=== PATIENT | female | born 1985 | race American Indian/Alaskan Native ===

== ENCOUNTER 2022-04-16 20:11 | Emergency (ER) | payer SELFPAY ==
[2022-04-16 23:26] VITALS: BP 121/74
[2022-04-17 08:37] LABS: Hematocrit 29.5 % (30.3-42.9); Hemoglobin 9.6 gm/dl (10.1-14.3); Mean Corpuscular HGB Conc 33 % (30-34); Platelet Count 242 K/mm3 (140-440); Red Cell Distribution Width 18.8 % (13.2-15.2)
[2022-04-17 08:48] LABS: Mean Corpuscular Volume 66 fl (79-97)
[2022-04-17 09:01] LABS: Blood Urea Nitrogen 6 mg/dL (7-17); Calcium 9.5 mg/dL (8.4-10.2); Hemolysis Index 4
[2022-04-17 09:02] LABS: BUN/Creatinine Ratio 9
[2022-04-17] MEDS ORDERED: predniSONE 20 MG TAB PO ONE (09:16)
[2022-04-17] MEDS ORDERED: BUTALB/ACETAMINOPHEN/CAFFEINE TAB PO ONE (09:16)
[2022-04-17] MEDS ORDERED: POTASSIUM CHLORIDE ER 20 MEQ TAB PO ONE (09:16)
[2022-04-17 10:25] LABS: Bilirubin,Urine Negative (Negative); Blood,Urine Large (Negative); Color,Urine Straw (Yellow); Urobilinogen,Urine < 2.0 mg/dL (<2.0)
[2022-04-17 10:36] LABS: Mucus,Urine 3+ /HPF
--- NOTE | 2022-04-17 10:49 | Emergency Department Report ---
ED General Adult HPI - General Chief complaint: Sore Throat Stated complaint: ANEMIA Time Seen by Provider: 04/17/22 07:23 Source: patient Mode of arrival: Ambulatory Limitations: No Limitations - History of Present Illness Initial comments: 37-year-old black female with a past medical history of anemia presents to the emergency department for evaluation of 2-day history of fever, headache, sore throat, and generalized weakness and malaise. She states that she feels like she felt when she needed a blood transfusion. She states that she just finished her menstrual cycle but it was not any heavier than usual. She denies chest pain, shortness of breath, nausea, vomiting, and diaphoresis. -: Gradual, days(s) (2) Location: head Radiation: non-radiation Severity scale (0 -10): 10 Quality: aching Consistency: constant Associated Symptoms: fever/chills, headaches, malaise, weakness. denies: confusion, chest pain, cough, diaphoresis, loss of appetite, nausea/vomiting, ra sh, seizure, shortness of breath, syncope Treatments Prior to Arrival: none - Related Data Previous Rx's Medication Instructions Recorded Last Taken Type traMADoL [Ultram 50 MG tab] 50 mg PO Q6HR PRN #16 tablet 08/07/14 Unknown Rx Allergies Allergy/AdvReac Type Severity Reaction Status Date / Time No Known Allergies Allergy Unverified 08/07/14 16:19 ED Review of Systems ROS: Stated complaint: ANEMIA Other details as noted in HPI Comment: All other systems reviewed and negative Constitutional: fever, weakness. denies: chills Eyes: denies: vision change ENT: denies: ear pain, dental pain, congestion Respiratory: denies: cough, shortness of breath, SOB with exertion, SOB at rest, stridor, wheezing Cardiovascular: denies: chest pain, palpitations, dyspnea on exertion, orthopnea, edema, syncope, paroxysmal nocturnal dyspnea Gastrointestinal: denies: abdominal pain, nausea, vomiting Musculoskeletal: denies: back pain Skin: denies: rash, lesions Neurological: headache. denies: weakness, numbness, paresthesias, confusion, abnormal gait ED Past Medical Hx - Social History Smoking Status: Never Smoker Substance Use Type: None - Medications Home Medications: Home Medications Medication Instructions Recorded Confirmed Last Taken Type traMADoL [Ultram 50 MG tab] 50 mg PO Q6HR PRN #16 tablet 08/07/14 Unknown Rx ED Physical Exam - General Limitations: No Limitations General appearance: alert, in no apparent distress - Head Head exam: Present: atraumatic, normocephalic - Eye Eye exam: Present: normal appearance. Absent: scleral icterus, conjunctival injection, periorbital swelling, periorbital tenderness - ENT ENT exam: Absent: normal exam (Bilateral nasal mucosal edema), normal orophraynx (Erythema noted to posterior oropharynx) - Expanded ENT Exam Expanded Throat exam: Positive: normal inspection. Negative: tonsillar erythema, tonsillomegaly, tonsillar exudate, R peritonsillar mass, L peritonsillar mass - Neck Neck exam: Present: normal inspection, full ROM. Absent: tenderness, meningismus, lymphadenopathy, thyromegaly - Respiratory Respiratory exam: Present: normal lung sounds bilaterally. Absent: respiratory distress, wheezes, rales, rhonchi, stridor, chest wall tenderness - Cardiovascular Cardiovascular Exam: Present: regular rate, normal heart sounds - GI/Abdominal GI/Abdominal exam: Present: soft, normal bowel sounds. Absent: distended, tenderness, guarding, rebound, rigid - Extremities Exam Extremities exam: Present: normal inspection, normal capillary refill. Absent: pedal edema, joint swelling, calf tenderness - Back Exam Back exam: Present: normal inspection. Absent: CVA tenderness (R), CVA tenderness (L) - Neurological Exam Neurological exam: Present: alert, oriented X3, normal gait - Psychiatric Psychiatric exam: Present: normal affect, normal mood - Skin Skin exam: Present: warm, dry, intact, normal color ED Course Vital Signs 04/16/22 04/17/22 23:23 11:15 Temperature 100.0 F H Pulse Rate 91 H 90 Respiratory 16 16 Rate Blood Pressure 121/74 Blood Pressure 121/74 [Right] O2 Sat by Pulse 100 100 Oximetry - Reevaluation(s) Reevaluation #1: 04/17/22 14:57 Symptoms resolved and patient states that she feels much better after medications. ED Medical Decision Making - Lab Data Result diagrams: 04/17/22 08:22 04/17/22 08:22 - Medical Decision Making 37-year-old black female with a past medical history of anemia presents to the emergency department for evaluation of 2-day history of fever, headache, sore throat, and generalized weakness and malaise. She states that she feels like she felt when she needed a blood transfusion. She states that she just finished her menstrual cycle but it was not any heavier than usual. She denies chest pain, shortness of breath, nausea, vomiting, and diaphoresis. Physical exam unremarkable. Labs without any gross abnormality except for low potassium which was treated with one-time dose of 40 mEq of potassium chloride. Urine negative for UA. Patient given Fioricet and steroids and now headache is resolved. Patient states that she feels better. She will be discharged home to take Tylenol and ibuprofen as needed for pain and fever and advised to increase intake of noncaffeinated fluids, follow-up with primary care provider if worsening symptoms, or return to the emergency department for any concerning symptoms. She verbalizes understanding of and agreement with plan of care. Critical care attestation.: If time is entered above; I have spent that time in minutes in the direct care of this critically ill patient, excluding procedure time. ED Disposition Clinical Impression: Viral syndrome Disposition: 01 HOME / SELF CARE / HOMELESS Is pt being admited?: No Does the pt Need Aspirin: No Condition: Stable Instructions: Viral Illness, Adult Additional Instructions: Use Tylenol and ibuprofen as needed for pain. Increase intake of noncaffeinated fluids. Follow-up with your primary care provider if no improvement or worsening symptoms. Return to the emergency department as needed. Referrals: KAYLA BRAGA MD [Primary Care Provider] - 3-5 Days Forms: Work/School Release Form(ED) Time of Disposition: 10:48
== END 2022-04-17 11:15 | disposition home or self-care (01) ==
LOC: ED 20:11
DX: B34.9 Viral infection, unspecified (principal)
CPT/HCPCS: 36415; 80048; 81001; 84703; 85027; 99283